=== PATIENT | male | born 1970 ===

== ENCOUNTER 2018-01-27 02:18 | Emergency (ER) | payer SELFPAY ==
[2018-01-27 02:37] VITALS: RESP 16; O2SAT 96
--- NOTE | 2018-01-27 02:53 | C.PDOC ---
History Of Present Illness 47 yr old male w/ hx of etoh abuse p/w etoh intoxication. Pt notes drinking today for fun. He denies any SI or HI. He denies falling or hitting his head or any part of his body. He denies any headache, abdominal pain, GI or complaints. No fever, chills or night sweats. No other complaints. Chief Complaint (Nursing): Substance Abuse Past Medical History Vital Signs: Last Vital Signs Temp 98.3 F 01/27/18 02:35 Pulse 86 01/27/18 02:35 Resp 16 01/27/18 02:35 BP 120/73 01/27/18 02:35 Pulse Ox 96 01/27/18 02:35 - Medical History PMH: Denies: Diabetes, Hepatitis, HIV, HTN, Seizures, Sexually Transmitted Disease Family History: States: Unknown Family Hx - Social History Hx Alcohol Use: Yes Hx Substance Use: No - Immunization History Hx Tetanus Toxoid Vaccination: No Hx Influenza Vaccination: No Hx Pneumococcal Vaccination: No Review Of Systems Constitutional: Negative for: Fever, Chills, Weakness, Malaise Eyes: Negative for: Pain ENT: Negative for: Ear Pain, Nose Congestion, Mouth Pain Cardiovascular: Negative for: Chest Pain, Palpitations Respiratory: Negative for: Cough, Shortness of Breath, SOB with Excertion Gastrointestinal: Negative for: Nausea, Vomiting, Constipation, Melena Genitourinary: Negative for: Dysuria, Frequency, Hematuria Musculoskeletal: Negative for: Neck Pain, Shoulder Pain, Back Pain Skin: Negative for: Rash, Lesions, Jaundice, Bruising Neurological: Negative for: Weakness, Numbness, Incoordination Psych: Negative for: Anxiety, Depression, Psychosis, Suicidal ideation Physical Exam - Physical Exam Appears: Well, Non-toxic, No Acute Distress Skin: Normal Color, Warm Head: Atraumatic, No Tenderness, No Abrasion, No Laceration Eye(s): bilateral: Normal Inspection, PERRL, EOMI Nose: Normal Oral Mucosa: Moist Tongue: Normal Appearing Lips: Normal Appearing Teeth: Normal Dentition Gingiva: Normal Appearing Throat: Normal, No Erythema, No Exudate Neck: Normal, Normal ROM, No Midline Cervical Tenderness, No Paracervical Tenderness, No Step Off Deformity, Supple, Other (no meningeal signs) Chest: Symmetrical, No Deformity Cardiovascular: Rhythm Regular Respiratory: Normal Breath Sounds, No Accessory Muscle Use, No Rales, No Rhonchi, No Stridor, No Wheezing Gastrointestinal/Abdominal: Normal Exam Back: Normal Inspection, No CVA Tenderness, No Vertebral Tenderness Extremity: Normal ROM Extremity: Bilateral: Atraumatic Neurological/Psych: Oriented x3, Normal Speech, Normal Cognition, Normal Cranial Nerves, No Cerebellar Signs, Normal Motor Gait: Steady Extremity: Right: No Drift, Left: No Drift, Upper: No Drift, Lower: No Drift ED Course And Treatment O2 Sat by Pulse Oximetry: 96 Medical Decision Making Medical Decision Makin yr old male p/w etoh intoxication. No fall or trauma. No headache, nausea or vomiting. No meningeal signs. Well appearing, stable gait. 0500 pt walking well w/ stable gait, in NAD, clinically sober. No signs of etoh withdrawal. No SI or HI or depression Neuro exam remains unremarkable, clear for d/c home. pt agreeable Disposition - Disposition Referrals: [facility] [Outside] [facility] [Outside] Disposition: HOME/ ROUTINE Disposition Time: 04:44 Condition: GOOD Additional Instructions: NICKIE SUTHERLAND, thank you for letting us take care of you today. Your provider was Jorje Kohler and you were treated for SUBSTANCE ABUSE. The emergency medical care you received today was directed at your acute symptoms. If you were prescribed any medication, please fill it and take as directed. It may take several days for your symptoms to resolve. Return to the Emergency Department if your symptoms worsen, do not improve, or if you have any other problems. Please contact your doctor or call one of the physicians/clinics you have been referred to that are listed on the Patient Visit Information form that is included in your discharge packet. Bring any paperwork you were given at discharge with you along with any medications you are taking to your follow up visit. Our treatment cannot replace ongoing medical care by a primary care provider outside of the emergency department. Thank you [facility] part of your care today. If you had an X-Ray or CT scan: A Radiologist will review the ED reading if any change in treatment is needed we will contact you. If you had a blood, urine, or wound culture: It will take several days for the results, if any change in treatment is needed we will contact you. If you had an STI test: It will take 48 hours for the results. Please call after 1 week if you have not heard back. Instructions: Alcohol Abuse and Alcoholism (DC) Forms: [facility] (Serbian) Print Language: ALBANIAN - Clinical Impression Clinical Impression: Alcohol intoxication
[2018-01-27 05:29] VITALS: BP 126/74; PULSE 88; TEMP 98
== END 2018-01-27 05:00 | disposition home or self-care (01) ==
LOC: C.ER 02:18
DX: F10.129 Alcohol abuse with intoxication, unspecified (principal)